=== PATIENT | female | born 1975 | race Caucasian/White ===

== ENCOUNTER 2017-02-01 17:01 | Emergency (ER) | payer MEDICAID ==
[2017-02-01 20:23] VITALS: BP 125/81
--- NOTE | 2017-02-01 20:49 | EDM.PDOC ---
ED HPI SEIZURE COMPLAINT - General Chief Complaint: Syncope Stated Complaint: WEAK / HEADACHE Time Seen by Provider: 02/01/17 18:24 Source: Reports: Patient History Limitations: Reports: No limitations - History of Present Illness INITIAL COMMENTS - FREE TEXT/NARRATIVE: History of present illness: [This is a 41-year-old female with a complex history. She has had no further syncopal episodes in the last 6 months. She has been thoroughly worked up for this and nothing has been discovered. She has had cardiac monitoring done and an echocardiogram and lab work done. She also has a problem of intermittent fevers that no one can figure out to the cause of. She is seeing an infectious disease specialist for this problem and they will be following up with her in the near future. Today she had another syncopal episode at about 4:00. She was hanging something up on the wall and then went down and was out for about 10 minutes and then came to. Her was present and states that this is the typical syncopal episode but she has. She complains of a headache but otherwise feels normal at this time. She denies any chest pain or visual disturbances or shortness of breath denies any nausea or vomiting or dysuria. Couple of days ago she had fevers but has not had any fever today. She has had blood cultures taken in the past when she had these fevers but they were negative. She also has a history of breast cancer with bilateral mastectomy and she has been cancer free for over a year early in his looking at seeing a plastic surgeon for reconstructive surgery.] Review of systems: As per history of present illness and below otherwise all systems reviewed and negative. Past medical history: As per history of present illness and as reviewed below otherwise noncontributory. Surgical history: As per history of present illness and as reviewed below otherwise noncontributory. Social history: No reported history of drug or alcohol abuse. Family history: As per history of present illness and as reviewed below otherwise noncontributory. Physical exam: HEENT: Atraumatic, normocephalic, pupils reactive, negative for conjunctival pallor or scleral icterus, mucous membranes moist, throat clear, neck supple, nontender, trachea midline. Lungs: Clear to auscultation, breath sounds equal bilaterally, chest nontender. Heart: S1S2, regular, negative for clicks, rubs, or JVD. Abdomen: Soft, nondistended, nontender. Negative for masses or hepatosplenomegaly. Negative for costovertebral tenderness. Pelvis: Stable nontender. Genitourinary: Deferred. Rectal: Deferred. Extremities: Atraumatic, negative for cords or calf pain. Neurovascular unremarkable. Neuro: Awake, alert, oriented. Cranial nerves II through XII unremarkable. Cerebellum unremarkable. Motor and sensory unremarkable throughout. Exam nonfocal. Diagnostics: [CBC complete metabolic panel EKG chest x-ray and head CT were obtained. Her alkaline phosphatase was a little elevated but otherwise everything was nondiagnostic. She's not having any abdominal pain and I suspect it may be from fatty liver infiltration given her body habitus.] Therapeutics: [] Impression: [Syncopal episode of unknown etiology] Plan: [She'll follow up with her primary care doctor and infectious disease doctor. I spent quite a bit of time visiting with them as they have a lot of questions and they're very frustrated. I suggested that eventually if the cause of her syncope is not discovered that perhaps a referral to [facility] would be in order.] Definitive disposition and diagnosis as appropriate pending reevaluation and review of above. - Related Data Allergies/ADRs: Allergies Allergy/AdvReac Type Severity Reaction Status Date / Time iodine Allergy Cannot Verified 02/01/17 17:27 Remember shellfish derived Allergy Cannot Verified 02/01/17 17:27 Remember sumatriptan Allergy Cannot Verified 02/01/17 17:27 Remember Home Meds: Home Meds Cyanocobalamin (Vitamin B12) [Vitamin B12] 2,500 mg PO DAILY 04/21/14 [History] Multivitamins [Child Chew Vitamin] 1 tab PO DAILY 04/21/14 [History] Acetaminophen/oxyCODONE [Percocet 325-5 MG] 1 - 2 tab PO Q4H PRN 07/13/15 [ History] Cholecalciferol (Vitamin D3) [Vitamin D] 1,000 cap PO DAILY 07/13/15 [History] Cyclobenzaprine HCl [Cyclobenzaprine HCl] 10 mg PO BEDTIME 07/13/15 [History] Gabapentin [Neurontin] 600 mg PO TID 07/13/15 [History] Ibuprofen 400 mg PO Q8H PRN 07/13/15 [History] Mupirocin Oint [Bactroban Oint] 1 applic TOP DAILY 07/13/15 [History] Promethazine [Phenergan] 25 mg PO ASDIRECTED PRN 07/13/15 [History] Propranolol [Inderal] 160 mg PO BEDTIME 07/13/15 [History] Citalopram Hydrobromide [Celexa] 20 mg PO DAILY 04/12/16 [History] Amitriptyline [Elavil] 50 mg PO BEDTIME 02/01/17 [History] Diclofenac Sodium [Voltaren 1%] 1 applic TP QID PRN 02/01/17 [History] Exemestane [Aromasin] 25 mg PO DAILY 02/01/17 [History] Hydrochlorothiazide 12.5 mg PO DAILY 02/01/17 [History] Past Medical History Cardiovascular History: Reports: Other (see below) Other Cardiovascular History: Faster heart rate at times. 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 Respiratory History: Reports: Other (see below) Other Respiratory History: coughing this past week.Recent pneumonia in Nov. Gastrointestinal History: Reports: Cholelithiasis, Gastritis, GERD, Hemorrhoids Other Gastrointestinal History: rny surgery [employer] History: Reports: Musculoskeletal History: Reports: Fracture Other Musculoskeletal History: r arm finger Neurological History: Reports: Migraines Psychiatric History: Reports: Depression Hematologic History: Reports: Anemia, B12 deficiency, Idiopathic thrombocytopenia, Iron deficiency Oncologic (Cancer) History: Reports: Breast - Infectious Disease History Infectious Disease History: Reports: C-difficile - Past Surgical History GI Surgical History: Reports: Bariatric procedure, Cholecystectomy, EGD, Hernia repair/other Other GI Surgeries/Procedures: 2009 Bariatric surgery Female Surgical History: Reports: section, D&C, Hysterectomy Oncologic Surgical History: Reports: Mastectomy Social & Family History - Tobacco Use Smoking Status *Q: Never Smoker Second Hand Smoke Exposure: No - Caffeine Use Caffeine Use: Reports: Tea - Alcohol Use Days Per Week of Alcohol Use: 0 - Recreational Drug Use Recreational Drug Use: No ED ROS GENERAL - Review of Systems Review Of Systems: ROS reveals no pertinent complaints other than HPI. - Physical Exam Exam: See Below Course - Vital Signs Last Recorded V/S: Last Vital Signs Temp 37.1 C 02/01/17 17:38 Pulse 57 L 02/01/17 20:22 Resp 16 02/01/17 20:22 BP 125/81 02/01/17 20:22 Pulse Ox 94 L 02/01/17 20:22 - Orders/Labs/Meds Orders: Active Orders 24 hr Category Date Time Status EKG Documentation Completion [RC] ASDIRECTED Care 02/01/17 19:36 Active Chest 2V [CR] Stat Exams 02/01/17 18:28 Taken Head wo Cont [CT] Stat Exams 02/01/17 19:35 Taken EKG 12 Lead [EK] Stat Ther 02/01/17 19:35 Ordered Labs: Laboratory Tests 02/01/17 02/01/17 02/01/17 Range/Units 18:28 18:28 18:28 WBC 7.6 (4.5-11.0) K/uL RBC 4.27 (3.30-5.50) M/uL Hgb 12.7 D (12.0-15.0) g/dL Hct 37.7 (36.0-48.0) % MCV 88 (80-98) fL MCH 30 (27-31) pg MCHC 34 (32-36) % Plt Count 243 (150-400) K/uL Neut % (Auto) 60 (36-66) % Lymph % (Auto) 32 (24-44) % [place] % (Auto) 5 (2-6) % Eos % (Auto) 3 (2-4) % Baso % (Auto) 1 (0-1) % Sodium 141 (140-148) mmol/L Potassium 4.5 (3.6-5.2) mmol/L Chloride 106 (100-108) mmol/L Carbon Dioxide 27 (21-32) mmol/L Anion Gap 12.5 (5.0-14.0) mmol/L BUN 12 D (7-18) mg/dL Creatinine 0.9 (0.6-1.0) mg/dL Est Cr Clr Drug Dosing 76.23 mL/min Estimated GFR (MDRD) > 60 (>60) Glucose 100 (74-106) mg/dL Lactic Acid 2.2 H (0.4-2.0) mmol/L Calcium 8.6 (8.5-10.1) mg/dL Total Bilirubin 0.3 (0.2-1.0) mg/dL AST 16 (15-37) U/L ALT 17 (12-78) U/L Alkaline Phosphatase 134 H (46-116) U/L Total Protein 7.3 (6.4-8.2) g/dL Albumin 3.3 L (3.4-5.0) g/dL Globulin 4.0 H (2.3-3.5) g/dL Albumin/Globulin Ratio 0.8 L (1.2-2.2) Urine Color Urine Appearance Urine pH (4.5-8.0) Ur Specific [place] (1.008-1.030) Urine Protein (NEGATIVE) mg/dL Urine Glucose (UA) (NEGATIVE) mg/dL Urine Ketones (NEGATIVE) mg/dL Urine Occult Blood (NEGATIVE) Urine Nitrite (NEGATIVE) Urine Bilirubin (NEGATIVE) Urine Urobilinogen (NORMAL) mg/dL Ur Leukocyte Esterase (NEGATIVE) Urine RBC (0-5) Urine WBC (0-5) Ur Epithelial Cells Amorphous Sediment Urine Bacteria Urine Mucus 02/01/17 Range/Units 19:14 WBC (4.5-11.0) K/uL RBC (3.30-5.50) M/uL Hgb (12.0-15.0) g/dL Hct (36.0-48.0) % MCV (80-98) fL MCH (27-31) pg MCHC (32-36) % Plt Count (150-400) K/uL Neut % (Auto) (36-66) % Lymph % (Auto) (24-44) % [place] % (Auto) (2-6) % Eos % (Auto) (2-4) % Baso % (Auto) (0-1) % Sodium (140-148) mmol/L Potassium (3.6-5.2) mmol/L Chloride (100-108) mmol/L Carbon Dioxide (21-32) mmol/L Anion Gap (5.0-14.0) mmol/L BUN (7-18) mg/dL Creatinine (0.6-1.0) mg/dL Est Cr Clr Drug Dosing mL/min Estimated GFR (MDRD) (>60) Glucose (74-106) mg/dL Lactic Acid (0.4-2.0) mmol/L Calcium (8.5-10.1) mg/dL Total Bilirubin (0.2-1.0) mg/dL AST (15-37) U/L ALT (12-78) U/L Alkaline Phosphatase (46-116) U/L Total Protein (6.4-8.2) g/dL Albumin (3.4-5.0) g/dL Globulin (2.3-3.5) g/dL Albumin/Globulin Ratio (1.2-2.2) Urine Color Yellow Urine Appearance Slightly cloudy Urine pH 5.0 (4.5-8.0) Ur Specific [place] 1.020 (1.008-1.030) Urine Protein Negative (NEGATIVE) mg/dL Urine Glucose (UA) Normal (NEGATIVE) mg/dL Urine Ketones Negative (NEGATIVE) mg/dL Urine Occult Blood Negative (NEGATIVE) Urine Nitrite Negative (NEGATIVE) Urine Bilirubin Negative (NEGATIVE) Urine Urobilinogen Normal (NORMAL) mg/dL Ur Leukocyte Esterase Negative (NEGATIVE) Urine RBC 0-5 (0-5) Urine WBC 5-10 H (0-5) Ur Epithelial Cells Moderate Amorphous Sediment Not seen Urine Bacteria Moderate Urine Mucus Numerous Departure - Departure Time of Disposition: 20:49 Disposition: Home, Self-Care 01 Condition: good Clinical Impression: Syncope Qualifiers: Syncope type: unspecified Qualified Code(s): R55 - Syncope and collapse Forms: ED Department Discharge - My Orders Last 24 Hours: My Active Orders 02/01/17 18:28 Chest 2V [CR] Stat 02/01/17 19:35 Head wo Cont [CT] Stat EKG 12 Lead [EK] Stat 02/01/17 19:36 EKG Documentation Completion [RC] ASDIRECTED - Assessment/Plan Last 24 Hours: My Active Orders 02/01/17 18:28 Chest 2V [CR] Stat 02/01/17 19:35 Head wo Cont [CT] Stat EKG 12 Lead [EK] Stat 02/01/17 19:36 EKG Documentation Completion [RC] ASDIRECTED
--- NOTE | 2017-02-04 10:09 | CR ---
Chest 2V HISTORY: Cough, fever. COMPARISON: 07/21/2010. Surgical clips in the left axilla. FINDINGS: Cardiac size and pulmonary vessels normal. There are no infiltrates or effusions. No pneum othorax. The osseous structures appear normal. IMPRESSION: No acute pulmonary disease.
== END 2017-02-01 20:57 | disposition home or self-care (01) ==
LOC: JP.ED 17:01
DX: R55 Syncope and collapse (principal); K21.9 Gastro-esophageal reflux disease without esophagitis; F32.9 Major depressive disorder, single episode, unspecified; D64.9 Anemia, unspecified; E53.8 Deficiency of other specified B group vitamins; D69.3 Immune thrombocytopenic purpura; D50.9 Iron deficiency anemia, unspecified; Z85.3 Personal history of malignant neoplasm of breast; Z79.899 Other long term (current) drug therapy; Z88.8 Allergy status to other drugs, medicaments and biological substances; Z91.013 Allergy to seafood
CPT/HCPCS: 36415; 70450; 71020; 71020-26; 80053; 81001; 83605; 85025; 93005; 99285-25

== ENCOUNTER 2017-06-07 21:24 | Emergency (ER) | payer MEDICAID ==
[2017-06-07 22:50] VITALS: BP 114/79
[2017-06-07] MEDS ORDERED: cefTRIAXone 2 GM, Lidocaine 1% 2.1 ML IM ONE ×2 (23:51)
--- NOTE | 2017-06-07 23:53 | EDM.PDOC ---
ED HPI GENERAL MEDICAL PROBLEM - General Chief Complaint: General Stated Complaint: INFECTION Time Seen by Provider: 06/07/17 23:41 Source of Information: Reports: Patient, RN Notes Reviewed History Limitations: Reports: No Limitations - History of Present Illness INITIAL COMMENTS - FREE TEXT/NARRATIVE: 41-year-old female presents emergency department day referred by clinic Dr. Renee infectious disease specialist, she was recently at the [facility] 5 days prior to having positive blood cultures for Streptococcus bovis, but she states she has not had any fevers feels fatigued but otherwise no symptoms at this time. Dr. Renee provided information that the blood cultures are sensitive to penicillin ceftriaxone and vancomycin asked that repeat blood cultures be done today and and started on 2 g of ceftriaxone, also asked for PICC line placement and transesophageal echo unfortunately though services are unavailable at this facility Chest Pain Score (Numeric/FACES): 6 - Related Data Allergies Allergy/AdvReac Type Severity Reaction Status Date / Time iodine Allergy Cannot Verified 06/07/17 23:18 Remember shellfish derived Allergy Cannot Verified 06/07/17 23:18 Remember sumatriptan Allergy Cannot Verified 06/07/17 23:18 Remember Home Meds: Home Meds Cyanocobalamin (Vitamin B12) [Vitamin B12] 2,500 mg PO DAILY 04/21/14 [History] Multivitamins [Child Chew Vitamin] 1 tab PO DAILY 04/21/14 [History] Acetaminophen/oxyCODONE [Percocet 325-5 MG] 1 - 2 tab PO Q4H PRN 07/13/15 [ History] Cholecalciferol (Vitamin D3) [Vitamin D] 1,000 cap PO DAILY 07/13/15 [History] Cyclobenzaprine HCl [Cyclobenzaprine HCl] 10 mg PO BEDTIME 07/13/15 [History] Gabapentin [Neurontin] 600 mg PO TID 07/13/15 [History] Ibuprofen 400 mg PO Q8H PRN 07/13/15 [History] Mupirocin Oint [Bactroban Oint] 1 applic TOP DAILY 07/13/15 [History] Promethazine [Phenergan] 25 mg PO ASDIRECTED PRN 07/13/15 [History] Propranolol [Inderal] 160 mg PO BEDTIME 07/13/15 [History] Citalopram Hydrobromide [Celexa] 30 mg PO DAILY 04/12/16 [History] Amitriptyline [Elavil] 100 mg PO BEDTIME 02/01/17 [History] Diclofenac Sodium [Voltaren 1%] 1 applic TP QID PRN 02/01/17 [History] Exemestane [Aromasin] 25 mg PO DAILY 02/01/17 [History] Hydrochlorothiazide 12.5 mg PO DAILY 02/01/17 [History] Calcium Carbonate [Calcium] 600 mg PO BID 06/07/17 [History] Docusate Sodium [Colace] 200 mg PO BID 06/07/17 [History] Magnesium 250 mg PO BID 06/07/17 [History] Omeprazole Magnesium [Prilosec Otc] 20 mg PO DAILY 06/07/17 [History] Past Medical History HEENT History: Reports: Impaired Vision Cardiovascular History: Reports: Other (See Below) Other Cardiovascular History: palpatations Respiratory History: Reports: Other (See Below) Other Respiratory History: coughing this past week.Recent pneumonia in Nov. Gastrointestinal History: Reports: Cholelithiasis, Gastritis, GERD, Hemorrhoids Other Gastrointestinal History: rny surgery [employer] D[employer]ER History: Reports: Musculoskeletal History: Reports: Fracture Other Musculoskeletal History: r arm finger Neurological History: Reports: Migraines Psychiatric History: Reports: Depression Hematologic History: Reports: Anemia, B12 Deficiency, Idiopathic Thrombocytopenia, Iron Deficiency Oncologic (Cancer) History: Reports: Breast - Infectious Disease History Infectious Disease History: Reports: C-Difficile - Past Surgical History GI Surgical History: Reports: Bariatric Procedure, Cholecystectomy, EGD, Hernia Repair/Other, Other (See Below) Other GI Surgeries/Procedures: multiple hernia surgery Female Surgical History: Reports: Section, D&C, Hysterectomy Oncologic Surgical History: Reports: Mastectomy Social & Family History - Tobacco Use Smoking Status *Q: Never Smoker Second Hand Smoke Exposure: No - Caffeine Use Caffeine Use: Reports: Tea - Alcohol Use Days Per Week of Alcohol Use: 0 - Recreational Drug Use Recreational Drug Use: No ED ROS GENERAL - Review of Systems Review Of Systems: See Below Constitutional: Reports: Fatigue HEENT: Reports: No Symptoms Respiratory: Reports: No Symptoms Cardiovascular: Reports: No Symptoms GI/Abdominal: Reports: No Symptoms : Reports: No Symptoms Musculoskeletal: Reports: No Symptoms Skin: Reports: No Symptoms ED EXAM, GENERAL - Physical Exam Exam: See Below Exam Limited By: No Limitations General Appearance: Alert, WD/WN, No Apparent Distress Head: Atraumatic, Normocephalic Neck: Normal Inspection, Supple, Non-Tender, Full Range of Motion Respiratory/Chest: No Respiratory Distress, Lungs Clear, Normal Breath Sounds, No Accessory Muscle Use, Chest Non-Tender Cardiovascular: Regular Rate, Rhythm, No Murmur GI/Abdominal: Soft, Non-Tender Course - Vital Signs Last Recorded V/S: Last Vital Signs Temp 97.1 F 06/07/17 23:34 Pulse 60 06/07/17 23:34 Resp 16 06/07/17 23:34 BP 114/79 06/07/17 23:34 Pulse Ox 98 06/07/17 23:34 - Orders/Labs/Meds Orders: Active Orders 24 hr Category Date Time Status Blood Culture x2 Reflex Set [OM.PC] Urgent Oth 06/07/17 23:51 Ordered Labs: Laboratory Tests 06/07/17 06/07/17 06/07/17 Range/Units 00:21 00:21 00:21 WBC 6.0 (4.5-11.0) K/uL RBC 4.06 (3.30-5.50) M/uL Hgb 12.5 (12.0-15.0) g/dL Hct 36.6 (36.0-48.0) % MCV 90 (80-98) fL MCH 31 (27-31) pg MCHC 34 (32-36) % Plt Count 241 (150-400) K/uL Neut % (Auto) 50 (36-66) % Lymph % (Auto) 39 (24-44) % [place] % (Auto) 6 (2-6) % Eos % (Auto) 3 (2-4) % Baso % (Auto) 1 (0-1) % Sodium 144 (140-148) mmol/L Potassium 4.6 (3.6-5.2) mmol/L Chloride 108 (100-108) mmol/L Carbon Dioxide 22 (21-32) mmol/L Anion Gap 13.7 (5.0-14.0) mmol/L BUN 8 (7-18) mg/dL Creatinine 0.7 (0.6-1.0) mg/dL Est Cr Clr Drug Dosing 94.21 mL/min Estimated GFR (MDRD) > 60 (>60) Glucose 92 (74-106) mg/dL Lactic Acid 2.3 H (0.4-2.0) mmol/L Calcium 8.0 L (8.5-10.1) mg/dL Total Bilirubin 0.4 (0.2-1.0) mg/dL AST 75 H D (15-37) U/L ALT 36 D (12-78) U/L Alkaline Phosphatase 102 (46-116) U/L Total Protein 7.0 (6.4-8.2) g/dL Albumin 3.2 L (3.4-5.0) g/dL Globulin 3.8 H (2.3-3.5) g/dL Albumin/Globulin Ratio 0.8 L (1.2-2.2) Meds: Medications Discontinued Medications Generic Name Dose Route Start Last Admin Trade Name Freq PRN Reason Stop Dose Admin Ceftriaxone Sodium 2 gm/ 0 gm 06/07/17 23:51 06/08/17 00:50 Lidocaine HCl 2.1 ml IM 06/07/17 23:52 2 inj ONETIME ONE Administration Departure - Departure Time of Disposition: 01:48 Disposition: Home, Self-Care 01 Condition: Good Clinical Impression: Streptococcus bovis infection, Positive blood cultures - Discharge Information Referrals: Geovanny Olson MD [Primary Care Provider] - Forms: ED Department Discharge Additional Instructions: Please return each day starting Saturday at 8:30 AM daily injection of antibiotics please keep your follow-up appointment at the [facility] - My Orders Last 24 Hours: My Active Orders 06/07/17 23:51 Blood Culture x2 Reflex Set [OM.PC] Urgent - Assessment/Plan Last 24 Hours: My Active Orders 06/07/17 23:51 Blood Culture x2 Reflex Set [OM.PC] Urgent Plan: Assessment Acuity = acute Site and laterality = positive blood culture Streptococcus bovis Etiology = unclear source Manifestations = none Location of injury = Home Lab values = CBC, CMP lactic acid all within normal limits Plan I did review lab work with her she tolerated the injection Rocephin orders are written to receive 2 grams Rocephin every 24 hours until at which time she has a follow-up with infectious disease Patient was in agreement with the plan all questions were answered, they were instructed to return to the emergency department or call for worsening symptoms. This note was dictated using [employer] voice recognition software please call with any questions.
== END 2017-06-08 01:58 | disposition home or self-care (01) ==
LOC: JP.ED 21:24
DX: A49.1 Streptococcal infection, unspecified site (principal); K21.9 Gastro-esophageal reflux disease without esophagitis; G43.909 Migraine, unspecified, not intractable, without status migrainosus; F32.9 Major depressive disorder, single episode, unspecified; Z88.8 Allergy status to other drugs, medicaments and biological substances; Z90.710 Acquired absence of both cervix and uterus; Z90.49 Acquired absence of other specified parts of digestive tract; Z98.84 Bariatric surgery status; Z79.899 Other long term (current) drug therapy; Z91.09 Other allergy status, other than to drugs and biological substances; Z91.013 Allergy to seafood; Z16.11 Resistance to penicillins; Z16.21 Resistance to vancomycin
CPT/HCPCS: 36415; 80053; 83605; 85025; 87040; 96372; 99284; J0696

== ENCOUNTER 2017-06-24 19:51 | Emergency (ER) | payer MEDICAID ==
[2017-06-24] MEDS ORDERED: Prochlorperazine 10 MG in Sodium Chloride 0.9% 50 ML IV ONE (20:41)
--- NOTE | 2017-06-24 20:52 | EDM.PDOC ---
<Jesus Cormier - Last Filed: 06/25/17 01:01> ED HPI GENERAL MEDICAL PROBLEM - General Chief Complaint: Fever Stated Complaint: FEVER PIC LINE Time Seen by Provider: 06/24/17 20:20 - Related Data Allergies Allergy/AdvReac Type Severity Reaction Status Date / Time Iodinated Contrast- Oral and Allergy Cannot Verified 06/25/17 10:12 IV Dye Remember iodine Allergy Cannot Verified 06/07/17 23:18 Remember morphine Allergy Hives Verified 06/25/17 10:12 shellfish derived Allergy Cannot Verified 06/07/17 23:18 Remember sumatriptan Allergy Cannot Verified 06/07/17 23:18 Remember Home Meds: Home Meds Cyanocobalamin (Vitamin B12) [Vitamin B12] 2,500 mg PO DAILY 04/21/14 [History] Multivitamins [Child Chew Vitamin] 1 tab PO DAILY 04/21/14 [History] Acetaminophen/oxyCODONE [Percocet 325-5 MG] 1 - 2 tab PO Q4H PRN 07/13/15 [ History] Cholecalciferol (Vitamin D3) [Vitamin D] 1,000 cap PO DAILY 07/13/15 [History] Cyclobenzaprine HCl [Cyclobenzaprine HCl] 10 mg PO BEDTIME 07/13/15 [History] Gabapentin [Neurontin] 600 mg PO TID 07/13/15 [History] Ibuprofen 400 mg PO Q8H PRN 07/13/15 [History] Mupirocin Oint [Bactroban Oint] 1 applic TOP DAILY 07/13/15 [History] Promethazine [Phenergan] 25 mg PO ASDIRECTED PRN 07/13/15 [History] Propranolol [Inderal] 160 mg PO BEDTIME 07/13/15 [History] Citalopram Hydrobromide [Celexa] 30 mg PO DAILY 04/12/16 [History] Amitriptyline [Elavil] 100 mg PO BEDTIME 02/01/17 [History] Diclofenac Sodium [Voltaren 1%] 1 applic TP QID PRN 02/01/17 [History] Exemestane [Aromasin] 25 mg PO DAILY 02/01/17 [History] Hydrochlorothiazide 12.5 mg PO DAILY 02/01/17 [History] Calcium Carbonate [Calcium] 600 mg PO BID 06/07/17 [History] Docusate Sodium [Colace] 200 mg PO BID 06/07/17 [History] Magnesium 250 mg PO BID 06/07/17 [History] Omeprazole Magnesium [Prilosec Otc] 20 mg PO DAILY 06/07/17 [History] ED ROS GENERAL - Review of Systems Review Of Systems: See Below Course - Vital Signs Last Recorded V/S: Last Vital Signs Temp 34.9 C L 06/24/17 22:13 Pulse 58 L 06/24/17 22:13 Resp 16 06/24/17 22:13 BP 102/55 L 06/24/17 22:13 Pulse Ox 95 06/24/17 22:13 - Orders/Labs/Meds Labs: Laboratory Tests 06/24/17 06/24/17 Range/Units 20:45 22:27 WBC 7.2 (4.5-11.0) K/uL RBC 4.04 (3.30-5.50) M/uL Hgb 11.9 L (12.0-15.0) g/dL Hct 36.7 (36.0-48.0) % MCV 91 (80-98) fL MCH 30 (27-31) pg MCHC 32 (32-36) % Plt Count 219 (150-400) K/uL Neut % (Auto) 56 (36-66) % Lymph % (Auto) 33 (24-44) % [place] % (Auto) 7 H (2-6) % Eos % (Auto) 3 (2-4) % Baso % (Auto) 1 (0-1) % Urine Color Yellow Urine Appearance Clear Urine pH 6.0 (4.5-8.0) Ur Specific [place] 1.015 (1.008-1.030) Urine Protein Negative (NEGATIVE) mg/dL Urine Glucose (UA) Normal (NEGATIVE) mg/dL Urine Ketones Negative (NEGATIVE) mg/dL Urine Occult Blood Negative (NEGATIVE) Urine Nitrite Negative (NEGATIVE) Urine Bilirubin Negative (NEGATIVE) Urine Urobilinogen Normal (NORMAL) mg/dL Ur Leukocyte Esterase Negative (NEGATIVE) Urine RBC 0-5 (0-5) Urine WBC 0-5 (0-5) Ur Epithelial Cells Few Amorphous Sediment Not seen Urine Bacteria Few Urine Mucus Not seen Meds: Medications Discontinued Medications Generic Name Dose Route Start Last Admin Trade Name Freq PRN Reason Stop Dose Admin Prochlorperazine Edisylate 10 52 mls @ 150 mls/hr 06/24/17 20:41 06/24/17 21: 15 mg/ Sodium Chloride IV 06/24/17 21:01 150 mls/hr ONETIME ONE Administration Vancomycin HCl 1 gm/ Sodium 250 mls @ 150 mls/hr 06/24/17 21:37 06/24/17 21: 51 Chloride IV 06/24/17 23:16 150 mls/hr ONETIME ONE Administration Departure - Departure Time of Disposition: 23:46 Disposition: Home, Self-Care 01 Clinical Impression: Influenza-like illness, Antibiotic-associated diarrhea PICC line infection Qualifiers: Encounter type: initial encounter Qualified Code(s): T80.219A - Unspecified infection due to central venous catheter, initial encounter Migraine Qualifiers: Migraine type: chronic without aura Status migrainosus presence: with status migrainosus Intractability: not intractable Qualified Code(s): G43.701 - Chronic migraine without aura, not intractable, with status migrainosus Fever Qualifiers: Fever type: unspecified Qualified Code(s): R50.9 - Fever, unspecified - Discharge Information Instructions: [facility], [id number] Referrals: Geovanny Olson MD [Primary Care Provider] - Forms: ED Department Discharge Additional Instructions: Follow up with [facility] ID clinic tomorrow. No driving tonight. Return to ED if worse, new problems. Take your temperature every 1-4h and record. <Nolan Rogersin - Last Filed: 07/09/17 06:32> ED HPI GENERAL MEDICAL PROBLEM - General Source of Information: Reports: Patient History Limitations: Reports: No Limitations - History of Present Illness INITIAL COMMENTS - FREE TEXT/NARRATIVE: Patient currently being treated for Strep bovis bacteremia of undetermined source. Was diagnosed at [facility] ~3 weeks ago as part of FUO w/u. Now presents complaining of pain and discharge at PICC insertion site, fever to 101.1degF. C/o persistent myalgias for last three+ weeks. C/o non-productive cough w/o dyspnea for last "couple of days". Also c/o ST for last day. No c/o nasal discharge. She also c/o diarrhea, w/o blood/pus/mucous, since starting on ceftriaxone. Workup a week back w/ chest and abdominal CT showed a "blood clot" in "vein of my liver" but was otherwise normal per patient. ERNESTINE and chest CT failed to show endocarditis. Has colonoscopy planned for next month. Has had her typically migraine headache for last three days, with partial response to nortryptan x 3 doses. No n/v. Associated Symptoms: Reports: Cough, Fever/Chills, Headaches, Malaise. Denies: Confusion, Chest Pain, Nausea/Vomiting, Rash, Shortness of Breath Treatments [employer]: Reports: Acetaminophen Generalized Pain Score (Numeric/FACES): 6 Past Medical History HEENT History: Reports: Impaired Vision Cardiovascular History: Reports: Other (See Below) Other Cardiovascular History: palpatations Respiratory History: Reports: None Other Respiratory History: coughing this past week.Recent pneumonia in Nov. Gastrointestinal History: Reports: Cholelithiasis, Gastritis, GERD, Hemorrhoids Other Gastrointestinal History: rny surgery [employer] History: Reports: Musculoskeletal History: Reports: Fracture Other Musculoskeletal History: r finger Neurological History: Reports: Migraines Psychiatric History: Reports: Depression Endocrine/Metabolic History: Reports: Obesity/BMI 30+, Osteopenia, Vitamin D Deficiency Hematologic History: Reports: Anemia, B12 Deficiency, Idiopathic Thrombocytopenia, Iron Deficiency Immunologic History: Reports: None Oncologic (Cancer) History: Reports: Breast - Infectious Disease History Infectious Disease History: Reports: C-Difficile - Past Surgical History GI Surgical History: Reports: Bariatric Procedure, Cholecystectomy, EGD, Hernia Repair/Other, Other (See Below) Other GI Surgeries/Procedures: multiple hernia surgery Female Surgical History: Reports: Section, D&C, Hysterectomy, Oophorectomy, Salpingo-Oophorectomy Neurological Surgical History: Reports: None Musculoskeletal Surgical History: Reports: None Oncologic Surgical History: Reports: Mastectomy Social & Family History - Tobacco Use Smoking Status *Q: Never Smoker Second Hand Smoke Exposure: No - Caffeine Use Caffeine Use: Reports: None - Alcohol Use Days Per Week of Alcohol Use: 0 - Recreational Drug Use Recreational Drug Use: No ED ROS GENERAL - Review of Systems Review Of Systems: See Below Constitutional: Reports: Fever, Malaise HEENT: Reports: Throat Pain. Denies: Ear Pain Respiratory: Reports: Cough. Denies: Shortness of Breath, Wheezing, Pleuritic Chest Pain, Sputum Cardiovascular: Reports: No Symptoms. Denies: Chest Pain Endocrine: Reports: Fatigue GI/Abdominal: Reports: Diarrhea. Denies: Abdominal Pain, Black Stool, Bloody Stool, Distension : Reports: No Symptoms Musculoskeletal: Reports: Muscle Pain Skin: Reports: Wound Neurological: Reports: Headache Psychiatric: Reports: No Symptoms Hematologic/Lymphatic: Denies: Swollen Glands ED EXAM, SEPSIS - Physical Exam Exam: See Below Exam Limited By: No Limitations General Appearance: Alert, WD/WN, Anxious, Mild Distress, Obese Eye Exam: Bilateral Eye: EOMI, PERRL Ears: Normal External Exam, Normal Canal, Hearing Grossly Normal, Normal TMs Nose: Normal Inspection, Normal Mucosa, No Blood Throat/Mouth: Normal Lips, Normal Teeth, Normal Gums, Normal Voice, No Airway Compromise, Tonsillar Erythema, Tonsillar Exudate, Tonsillar Swelling Head: Atraumatic, Normocephalic Neck: Normal Inspection, Supple, Non-Tender, Full Range of Motion. No: Lymphadenopathy (R), Lymphadenopathy (L) Respiratory/Chest: No Respiratory Distress, Lungs Clear, Normal Breath Sounds, No Accessory Muscle Use Cardiovascular: Normal Peripheral Pulses, Regular Rate, Rhythm, No Edema, No Murmur GI/Abdominal Exam: Normal Bowel Sounds, Soft, Non-Tender, No Organomegaly, No Distention, No Mass, Other (exam limited by body habitus) Back: Normal Inspection, Full Range of Motion Extremities: Normal Inspection, Normal Range of Motion, Non-Tender, No Pedal Edema, Normal Capillary Refill Neurological: Alert, Oriented, CN II-XII Intact, Normal Cognition, Normal Gait, No Motor/Sensory Deficits Psychiatric: Normal Affect, Anxious, Flat Affect Skin: Warm, Intact, Normal Color, No Rash, Wound/Incision (scant purulent d/c under dressing of PICC line, TTP over insertion site, qns culture) Course - Orders/Labs/Meds Labs: Laboratory Tests 06/24/17 06/24/17 Range/Units 20:45 22:27 WBC 7.2 (4.5-11.0) K/uL RBC 4.04 (3.30-5.50) M/uL Hgb 11.9 L (12.0-15.0) g/dL Hct 36.7 (36.0-48.0) % MCV 91 (80-98) fL MCH 30 (27-31) pg MCHC 32 (32-36) % Plt Count 219 (150-400) K/uL Neut % (Auto) 56 (36-66) % Lymph % (Auto) 33 (24-44) % [place] % (Auto) 7 H (2-6) % Eos % (Auto) 3 (2-4) % Baso % (Auto) 1 (0-1) % Urine Color Yellow Urine Appearance Clear Urine pH 6.0 (4.5-8.0) Ur Specific [place] 1.015 (1.008-1.030) Urine Protein Negative (NEGATIVE) mg/dL Urine Glucose (UA) Normal (NEGATIVE) mg/dL Urine Ketones Negative (NEGATIVE) mg/dL Urine Occult Blood Negative (NEGATIVE) Urine Nitrite Negative (NEGATIVE) Urine Bilirubin Negative (NEGATIVE) Urine Urobilinogen Normal (NORMAL) mg/dL Ur Leukocyte Esterase Negative (NEGATIVE) Urine RBC 0-5 (0-5) Urine WBC 0-5 (0-5) Ur Epithelial Cells Few Amorphous Sediment Not seen Urine Bacteria Few Urine Mucus Not seen - Re-Assessments/Exams Free Text/Narrative Re-Assessment/Exam: 06/24/17 20:57 Initial impression: multiple candidate causes of acute fever. Strep infection unlikely given course of ceftriaxone. Suspects include the infection at site of PICC line, influenza, occult UTI. ? source of S. bovis ifxn. Abx associated diarrhea r/o C. diff. Free Text/Narrative Re-Assessment/Exam: 06/24/17 21:36 Spoke w/ Dr White ([facility]) who concurred with plan for IV vanco , leave PICC in, and follow up tomorrow in ID clinic.
[2017-06-24 22:14] VITALS: BP 102/55
--- NOTE | 2017-06-25 08:50 | CR ---
Chest 2V INDICATION: productive cough, fever FINDINGS: Comparison 02/01/2017. New right PICC line in place with tip in the upper SVC. Surgical clip s project over the chest and upper abdomen. Chest otherwise negative.
== END 2017-06-24 23:46 | disposition home or self-care (01) ==
LOC: JP.ED 19:51
DX: T80.219A Unspecified infection due to central venous catheter, initial encounter (principal); J11.1 Influenza due to unidentified influenza virus with other respiratory manifestations; G43.701 Chronic migraine without aura, not intractable, with status migrainosus; K52.1 Toxic gastroenteritis and colitis; K21.9 Gastro-esophageal reflux disease without esophagitis; F32.9 Major depressive disorder, single episode, unspecified; E66.9 Obesity, unspecified; Z86.2 Personal history of diseases of the blood and blood-forming organs and certain disorders involving the immune mechanism; Z85.3 Personal history of malignant neoplasm of breast; Z98.84 Bariatric surgery status; Z90.49 Acquired absence of other specified parts of digestive tract; Z98.890 Other specified postprocedural states; Z90.710 Acquired absence of both cervix and uterus; Z79.899 Other long term (current) drug therapy; Z88.5 Allergy status to narcotic agent; Z88.8 Allergy status to other drugs, medicaments and biological substances; Z91.013 Allergy to seafood; Z91.041 Radiographic dye allergy status; Z68.43 Body mass index [BMI] 50.0-59.9, adult
CPT/HCPCS: 36415; 71020; 81001; 85025; 87040; 87086; 87804; 96365; 96375; 99284; J0780; J3370; J7050